=== PATIENT | male | born 1990 | race Caucasian/White ===

== ENCOUNTER 2017-01-15 15:26 | Emergency (ER) | payer SELFPAY ==
[~2017-01-15] VITALS: Ht 172.7 cm; Wt 67.2 kg
[2017-01-15] MEDS ORDERED: NEXIUM (15:31)
[2017-01-15] MEDS ORDERED: NARCAN4 MG NS (16:36)
[2017-01-15 16:51] LABS: POINT-OF-CARE METER ID UU14100415
[2017-01-15 16:55] VITALS: BP 141/92
== END 2017-01-15 16:56 | disposition home or self-care (01) ==
LOC: EME 15:26
PROVIDERS: Emergency Medicine
DX: T40.1X1A Poisoning by heroin, accidental (unintentional), initial encounter (principal); F11.20 Opioid dependence, uncomplicated; F17.200 Nicotine dependence, unspecified, uncomplicated
CPT/HCPCS: 82948; 99281; 99284; J2310